=== PATIENT | female | born 1960 | race Caucasian/White ===

== ENCOUNTER 2018-07-07 07:55 | Outpatient (CLI) | payer BC ==
--- NOTE | 2018-07-07 14:42 | CT ---
PRE AND POST CONTRAST SOFT TISSUE NECK CT: HISTORY: Hypercalcemia. Evaluate for parathyroid adenoma. COMPARISON: None. TECHNIQUE: Pre and post contrast soft tissue neck CT is performed following pituitary protocol. FINDINGS: The visualized aerodigestive tract is patent. The epiglottis has a normal caliber. Pre-epiglottic f at is preserved. Symmetric attenuation of the visualized parotid and submandibular glands. Symmetric attenuation of the sternocleidomastoid muscles. Grossly, the great vessels of the neck are patent. The mediastinum is unremarkable. Patchy ground g lass opacities in the visualized lung parenchyma. There is mild degenerative change of the cervical spine with central canal stenosis. Varying degrees of foraminal stenosis due to degenerative change. Vertebral body height is maintained. No fracture . Superior and posterior to the left thyroid lobe is an enhancing mass, measuring 1.1 x 0.6 cm. Pre-co ntrast attenuation is different than the adjacent thyroid gland. A superior left parathyroid adenoma is favored. IMPRESSION: Superior left parathyroid adenoma. POS: [facility]
--- NOTE | 2018-07-07 15:04 | NM ---
RADIONUCLIDE PARATHYROID SCAN WITH SPECT CT: Date: 07/07/18 HISTORY: Hypercalcemia. RADIOPHARMACEUTICAL: 27 mCi technetium-99m sestamibi injected intravenously. FINDINGS: There is physiologic activity in the salivary glands and thyroid gland. A small focus of persistently increased uptake is seen posterior to the superior aspect of the left thyroid lobe superior pole cor responding to the enhancing lesion on the CT scan of same date. IMPRESSION: Left superior parathyroid adenoma. POS: [facility]
== END 2018-07-07 07:56 | disposition home or self-care (01) ==
LOC: CT 07:55
PROVIDERS: ATTEND Otolaryngology Otolaryngic Allergy
DX: E21.0 Primary hyperparathyroidism (principal); D35.1 Benign neoplasm of parathyroid gland
CPT/HCPCS: 70492; 78072; A9500

== ENCOUNTER 2018-09-21 11:07 | Day surgery (SDC) | payer BC ==
[2018-09-20 10:52] VITALS: BMI 22.1
[2018-09-21] MEDS ORDERED: Midazolam HCl 2 mg/2 ml Vial ONE ×2 (12:50→13:19)
--- NOTE | 2018-09-21 12:50 | EKG ---
Test Reason : PREOP Blood Pressure : / mmHG Vent. Rate : 072 BPM Atrial Rate : 072 BPM P-R Int : 150 ms QRS Dur : 080 ms QT Int : 364 ms P-R-T Axes : 057 -10 043 degrees QTc Int : 398 ms Normal sinus rhythm Moderate voltage criteria for LVH, may be normal variant Borderline ECG Confirmed by DR. Jose LANE ([id number]) on 09/21/2018 12:50:02 PM Referred By: ESTRELLITA Confirmed By:DR. Jose LANE
[2018-09-21] MEDS ORDERED: Fentanyl 100 MCG/2 ML VIAL ONE ×3 (12:51→15:55)
[2018-09-21] MEDS ORDERED: Lidocaine 1% w/Epinephrine 1:200K 30 ML VIAL ONE (13:45)
[2018-09-21] MEDS ORDERED: Hydrocodone-Acetamin 15 ML UDCUP ONE (17:02)
--- NOTE | 2018-09-22 14:22 | OP ---
DATE OF PROCEDURE: 09/21/2018 PREOPERATIVE DIAGNOSES: 1. Hyperparathyroidism. 2. Left parathyroid adenoma. POSTOPERATIVE DIAGNOSES: 1. Hyperparathyroidism. 2. Left parathyroid adenoma. PROCEDURE: Left parathyroid adenoma parathyroidectomy. SURGEON: Timothy Michaud M.D. ESTIMATED BLOOD LOSS: Less than 5 mL COMPLICATIONS: None. ANESTHESIA: GETA with laryngeal nerve monitor. PROCEDURE IN DETAIL: The patient was taken to the operating room and placed supine on the table. Ge neral endotracheal anesthesia was obtained by the Anesthesia staff. Tube was confirmed to be with th e laryngeal electrodes between the true vocal cords using the indirect GlideScope. Following this, a shoulder roll was placed. The tube was secured in the midline of the upper lip. The patient was th en prepped and draped in standard surgical fashion. An 8 mL of 1% lidocaine with 1:100,000 epinephri ne was injected over the anticipated incision. The area was localized using the preoperative imaging and a small 2 cm incision was then made directly over the left parathyroid adenoma and a skin crease . The dissection was carried through skin, subcuticular tissue and the platysmal layer. The strap m uscles were identified and were retracted medially and the thyroid gland was identified. On the post erior superior aspect of the thyroid gland was a large 2.5 cm x 1 cm adenoma of the parathyroid gland . This was removed and was suture ligated. The wound was then irrigated. There was no evidence of bleeding. The platysmal layer was reapproximated using a 4-0 Monocryl, subcuticular layer was closed using a 4-0 Monocryl and the skin was closed using Dermabond. The patient tolerated the procedure w ell. Intraoperative pathological analysis confirmed parathyroid adenoma.
== END 2018-09-21 18:40 | disposition home or self-care (01) ==
LOC: SDC 11:07
PROVIDERS: ATTEND Otolaryngology Plastic Surgery within the Head & Neck
PROC: 0GBR0ZZ Excision of Parathyroid Gland, Open Approach (ICD-10-PCS; principal; 2018-09-21)
DX: D35.1 Benign neoplasm of parathyroid gland (principal); E21.3 Hyperparathyroidism, unspecified; H81.02 Meniere's disease, left ear; J45.20 Mild intermittent asthma, uncomplicated; Z79.899 Other long term (current) drug therapy; Z91.018 Allergy to other foods; Z91.041 Radiographic dye allergy status
CPT/HCPCS: 36415; 85014; 88305; 88331; 88334; 93005; 93010; 96374; 96376; J2250; J3010

== ENCOUNTER 2018-12-26 00:33 | Outpatient (CLI) | payer BC ==
[2018-12-26 14:53] LABS: #Eosinphils 0.2 thou/uL (0.0-0.7); #Lymphocytes 1.6 thou/uL (1.20-3.40); #Monocytes 0.4 thou/uL (0.11-0.59); #Neutrophils 2.5 thou/uL (1.40-6.50); %Basophils 0.8 % (0.0-1.0); %Eosinophils 3.7 % (0.0-10.0); %Lymphocytes 33.7 % (21.0-51.0); %Monocytes 8.3 % (0.0-10.0); %Neutrophils 53.6 % (42.0-75.0); Hemoglobin 13.4 g/dL (12.0-16.0); Mean Corpuscular HGB CONC 32.5 g/dL (32.0-36.0); Mean Corpuscular Hemoglobin 28.5 pg (27.0-31.0); Mean Corpuscular Volume 87.7 fL (78.0-98.0); Mean Platelet Volume 8.5 fL (7.4-10.4); Platelet Count 208 thou/uL (130-400); RBC Distribution Width 12.4 % (11.5-14.5); Red Blood Cell (RBC) Count 4.69 mill/uL (4.20-5.40); White Blood Cell (WBC) Count 4.7 thou/uL (4.8-10.8)
== END 2018-12-26 00:34 | disposition home or self-care (01) ==
LOC: LABBT 00:33
PROVIDERS: ATTEND Orthopaedic Surgery
DX: Z01.812 Encounter for preprocedural laboratory examination (principal); G56.01 Carpal tunnel syndrome, right upper limb; M65.4 Radial styloid tenosynovitis [de Quervain]
CPT/HCPCS: 85025

== ENCOUNTER 2018-12-28 06:13 | Day surgery (SDC) | payer BC ==
[2018-12-26 13:12] VITALS: BMI 22.1
[2018-12-28] MEDS ORDERED: methylPREDNISolone Acetate 40 mg/ml Vial ONE (06:26)
[2018-12-28] MEDS ORDERED: Lidocaine 1% (PF) 30 ML VIAL ONE (06:26)
[2018-12-28] MEDS ORDERED: Bupivacaine PF 0.5% 30 ML VIAL ONE (06:26)
[2018-12-28] MEDS ORDERED: CEFAZOLIN 2 GM/50 ML BAG ONE (07:03)
[2018-12-28] MEDS ORDERED: Scopolamine 1.5 mg/72 hour Patch ONE (07:09)
[2018-12-28] MEDS ORDERED: Midazolam HCl 2 mg/2 ml Vial ONE (07:43)
[2018-12-28] MEDS ORDERED: Fentanyl 100 MCG/2 ML VIAL ONE (07:44)
[2018-12-28] MEDS ORDERED: HYDROcodone/Acetaminophen 5/325 mg Tablet ONE (09:29)
--- NOTE | 2018-12-28 10:17 | OP ---
DATE OF PROCEDURE: 12/28/2018 PREOPERATIVE DIAGNOSIS: Right carpal tunnel syndrome, left de Quervain tenosynovitis. POSTOPERATIVE DIAGNOSIS: Right carpal tunnel syndrome, left de Quervain tenosynovitis. PROCEDURES PERFORMED: 1. Right open carpal tunnel release. 2. Corticosteroid injection in the left first dorsal compartment. 3. Placement of short-arm volar splint, right upper extremity. INFORMATION SECURITY: None. BLOOD LOSS: Minimal. COMPLICATIONS: None. ANESTHESIA: She had a TIVA with local. DISPOSITION: She went to recovery room in stable condition. INDICATIONS: This is a 58-year-old female comes in complaining of long-term numbness and tingling in the right hand as well as pain with a diagnosis of de Quervain tenosynovitis, left wrist. At this time, she opted for surgery. DESCRIPTION OF PROCEDURE: After verbal consent forms were explained and signed, she was taken to the operative room and at this time was given some IV sedation. I went to the left side first, cleaned up with some alcohol and injected Depo-Medrol with a small amount of local into the first dorsal compartment. Band-Aid was applied. We then turned our attention to the right upper extremity. Tourniquet was placed on the right arm. The right arm was then prepped draped in surgical fashion. The incision was then drawn out and infiltrated with plain lidocaine. Limb was exsanguinated and tourniquet taken up to 250 mmHg. At this time, using Loupe magnification, a 15 blade was used to incise down through skin. Bipolar cautery was used to coagulate any brisk venous bleeding. We then placed a small hemostat to protect the underlying median nerve and transected the transverse carpal ligament using multiple 15 blades as well as scissors. Once this was done, a small finger was inserted to palpate for any remaining bands. At this time, a moist Ray-Nate sponge was placed into the wound. Tourniquet was let down and pressure was held. Bipolar cautery used to coagulate any brisk venous bleeding. The wound was then irrigated with saline solution and we then evaluated the nerve. The nerve was found to be significantly injected, the nerve was intact, there were no masses noted, and the underlying flexor tendons were in good condition. At this time, we irrigated and dried the wound. We then placed multiple nylon stitches to close the incision. A bulky sterile hand dressing and a small volar splint were then placed. The patient was then awakened and taken to recovery in stable condition. All counts were correct at the end of the case. The patient received preoperative IV antibiotics. Job ID: [id number]
[2018-12-28] MEDS ORDERED: Ondansetron PF 4 MG/2 ML Vial ONE (13:35)
[2018-12-28] MEDS ORDERED: Lidocaine 1% PF 5 ML VIAL ONE (13:35)
[2018-12-28] MEDS ORDERED: Dexamethasone 20 MG/5 ML VIAL ONE (13:35)
[2018-12-28] MEDS ORDERED: PROPOFOL 200 MG/20 ML VIAL ONE (13:35)
== END 2018-12-28 10:10 | disposition home or self-care (01) ==
LOC: SDC 06:13
PROVIDERS: ATTEND Orthopaedic Surgery
PROC: 01N50ZZ Release Median Nerve, Open Approach (ICD-10-PCS; principal; 2018-12-28)
DX: G56.01 Carpal tunnel syndrome, right upper limb (principal); M65.4 Radial styloid tenosynovitis [de Quervain]; J30.1 Allergic rhinitis due to pollen; Z90.89 Acquired absence of other organs; Z91.041 Radiographic dye allergy status; Z91.018 Allergy to other foods; Z79.899 Other long term (current) drug therapy; Z98.890 Other specified postprocedural states
CPT/HCPCS: J1030; J1100; J2001; J2250; J2405; J2704; J3010; S0020

== ENCOUNTER 2019-07-12 05:59 | Day surgery (SDC) | payer BC ==
[2019-07-10 13:06] VITALS: BMI 22.4
[2019-07-12] MEDS ORDERED: Midazolam HCl 2 mg/2 ml Vial ONE (06:05)
[2019-07-12] MEDS ORDERED: Fentanyl 100 MCG/2 ML VIAL ONE (06:05)
[2019-07-12] MEDS ORDERED: Propofol 500 MG/50 ML VIAL ONE (06:39)
[2019-07-12] MEDS ORDERED: HYDROmorphone 0.5 MG/0.5 ML SYRINGE ONE (06:39)
[2019-07-12 06:44] LABS: #Eosinphils 0.1 thou/uL (0.0-0.7); #Monocytes 0.4 thou/uL (0.11-0.59); #Neutrophils 1.8 thou/uL (1.40-6.50); %Basophils 0.5 % (0.0-1.0); %Eosinophils 2.3 % (0.0-10.0); %Monocytes 9.3 % (0.0-10.0); %Neutrophils 41.9 % (42.0-75.0); Hemoglobin 13.7 g/dL (12.0-16.0); Mean Corpuscular HGB CONC 33.3 g/dL (32.0-36.0); Mean Corpuscular Hemoglobin 28.4 pg (27.0-31.0); Mean Corpuscular Volume 85.1 fL (78.0-98.0); Mean Platelet Volume 8.5 fL (7.4-10.4); Platelet Count 198 thou/uL (130-400); RBC Distribution Width 12.3 % (11.5-14.5); Red Blood Cell (RBC) Count 4.83 mill/uL (4.20-5.40); White Blood Cell (WBC) Count 4.3 thou/uL (4.8-10.8)
[2019-07-12 07:00] LABS: Anion Gap 13 mmol/L (10-20); BUN (Urea Nitrogen) 17 mg/dL (9.8-20.1); Calc. Creatinine Clearance 79 mL/min (70-130); Calcium 9.7 mg/dL (7.8-10.44); Carbon Dioxide 25 mmol/L (22-29); Chloride 105 mmol/L (98-107); Estimated GFR-MDRD 78; Glucose 108 mg/dL (70-105); Potassium 3.7 mmol/L (3.5-5.1); Sodium 139 mmol/L (136-145)
[2019-07-12] MEDS ORDERED: Lidocaine 1% (PF) 30 ML VIAL ONE (07:49)
[2019-07-12] MEDS ORDERED: Morphine 2 MG/ML SYRINGE ONE (09:29)
--- NOTE | 2019-07-12 10:26 | OP ---
DATE OF PROCEDURE: 07/12/2019 PREOPERATIVE DIAGNOSES: Left wrist de Quervain's tenosynovitis and left carpal tunnel syndrome. POSTOPERATIVE DIAGNOSES: Left wrist de Quervain's tenosynovitis and left carpal tunnel syndrome. PROCEDURES PERFORMED: 1. Left open de Quervain's release/release of first dorsal compartment. 2. Open carpal tunnel release. 3. Placement of small volar splint as well as a thumb spica splint to the left upper extremity. GROUNDS MAINTENANCE WORKER: None. ESTIMATED BLOOD LOSS: Minimal. COMPLICATIONS: None. ANESTHESIA: The patient had general anesthetic. DISPOSITION: She went to recovery room in stable condition. INDICATIONS: This is a 58-year-old female, who has failed nonoperative treatment for de Quervain's tenosynovitis and has documented carpal tunnel syndrome on EMG/NCV. At this time, she opted to have both release at the same time. DESCRIPTION OF PROCEDURE: After all appropriate consent forms were explained and signed, she was taken back to the operative room and at this time was given general anesthetic. Tourniquet was placed on the left arm and the arm was then prepped and draped in standard surgical fashion. The incision lines were drawn out for a carpal tunnel release as well as a de Quervain's release and the carpal tunnel incision was infiltrated with 1% plain lidocaine. At this time, the limb was exsanguinated and tourniquet was taken to 250 mmHg. Using loupe magnification, a 15 blade was used to incise down through skin only. Bipolar cautery was used to coagulate any brisk venous bleeding. We then got down to the underlying transverse carpal ligament. I placed a hemostat underneath this to protect the underlying median nerve and used a combination of a 15 blade as well as surgical scissors to transect the transverse carpal ligament. Once this was done, the nerve was dissected out, was found to have no tumors or masses, and the underlying flexor tendons were in good condition. At this time, a moist Ray-Nate sponge was placed into the wound. Tourniquet was let down. We then achieved hemostasis and once hemostasis was achieved, we thoroughly irrigated and dried the wound. Multiple nylon sutures were then applied. We then turned our attention to the de Quervain's area. A horizontal incision was made approximately 1 cm proximal to the tip of the radial styloid down through skin only. Bipolar was used to coagulate any brisk venous bleeding. We then used surgical scissors to dissect out the soft tissue and move aside the veins and neurovascular structures to get down to the underlying first dorsal compartment. A combination of 15 blade as well as surgical scissors were then used to transect this and opened up the roof to allow visualizations of the tendons in the first dorsal compartment. These were freed up from any adhesions and the thumb was then moved, making sure that there were no more adhesions on these tendons. They were each also pulled out into the wound to make sure no more adhesions were found. Once this was done, the wound was thoroughly irrigated and dried. The tourniquet was let down. Hemostasis was achieved. We then placed some nylon sutures in the skin to close this wound. At this time, a bulky sterile soft tissue dressing was applied for hand dressing and then we placed a small piece of plaster on the volar aspect as well as a piece of plaster along the thumb acting as a thumb spica splint. Darrel wrap was applied and once this hardened, the patient was awakened and taken to the recovery room in stable condition. All counts were correct at the end of the case and she did receive preoperative IV antibiotics. Job ID: [id number]
[2019-07-12] MEDS ORDERED: HYDROcodone/Acetaminophen 5/325 mg Tablet ONE (11:00)
[2019-07-12] MEDS ORDERED: PROPOFOL 200 MG/20 ML VIAL ONE (16:34)
[2019-07-12] MEDS ORDERED: Dexamethasone 20 MG/5 ML VIAL ONE (16:34)
[2019-07-12] MEDS ORDERED: Ondansetron PF 4 MG/2 ML Vial ONE (16:34)
[2019-07-12] MEDS ORDERED: Lidocaine 1% PF 5 ML VIAL ONE (16:34)
== END 2019-07-12 11:30 | disposition home or self-care (01) ==
LOC: SDC 05:59
PROVIDERS: ATTEND Orthopaedic Surgery
PROC: 0LN60ZZ Release Left Lower Arm and Wrist Tendon, Open Approach (ICD-10-PCS; principal; 2019-07-12)
PROC: 01N50ZZ Release Median Nerve, Open Approach (ICD-10-PCS; principal; 2019-07-12)
DX: G56.02 Carpal tunnel syndrome, left upper limb (principal); M65.4 Radial styloid tenosynovitis [de Quervain]; Z91.09 Other allergy status, other than to drugs and biological substances
CPT/HCPCS: 80048; 85025; J0690; J1100; J1170; J2001; J2250; J2270; J2405; J2704; J3010; J3370